=== PATIENT | male | born 1950 | race Caucasian/White ===

== ENCOUNTER 2016-06-22 06:53 | Day surgery (SDC) | payer BC ==
[~2016-06-22 06:53] MED LIST: ceFAZolin 2 GM/DEXTROSE 100 ML IV ONE
[2016-06-22] MEDS ORDERED: SKIN ADHESIVE (DERMABOND) 1 EACH TP ONE (08:46)
[2016-06-22] MEDS ORDERED: BUPIVACAINE 0.5% 30 ML SDV ONE (08:46)
[2016-06-22] MEDS ORDERED: MIDAZOLAM 2 MG/2 ML VIAL ONE (08:57)
[2016-06-22] MEDS ORDERED: PROPOFOL/EMULSION 500 MG/50 ML BOTTLE IV ONE (09:00)
[2016-06-22] MEDS ORDERED: fentaNYL 250 MCG/5 ML INJ ONE (09:02)
[2016-06-22] MEDS ORDERED: ROCURONIUM 100 MG/10 ML VIAL ONE (10:00)
[2016-06-22] MEDS ORDERED: DEXAMETHASONE 4 MG/ML VIAL ONE (10:00)
[2016-06-22] MEDS ORDERED: ONDANSETRON 4 MG/2 ML VIAL ONE (10:00)
--- NOTE | 2016-06-22 12:20 | GOP ---
[f rep st] OPERATIVE REPORT DATE OF OPERATION: 06/22/2016 SURGEON: Gayatri Khoury MD TALENT ACQUISITION SOURCER: Zohreh Michael PA-C. ANESTHESIA: General. PREOPERATIVE DIAGNOSIS: Necrotizing pancreatitis with cholelithiasis. POSTOPERATIVE DIAGNOSIS: Necrotizing pancreatitis with cholelithiasis. PROCEDURE PERFORMED: Laparoscopic cholecystectomy. SPECIMENS: Gallbladder. ESTIMATED BLOOD LOSS: 10 cc. INDICATIONS: Darryn Mercado is a 65-year-old man who had a severe episode of necrotizing pancreatitis. Gallstones were noted. He presents for cholecystectomy. DESCRIPTION OF PROCEDURE: Darryn was brought into the operating room, placed supine on the table, and general anesthesia was administered. His abdomen was prepped and draped in the usual sterile fashion. I infiltrated all sites with 0.5% Marcaine prior to making incisions. I made an incision by his umbilicus. I inserted the Veress needle. It passed the hanging drop test. His abdomen insufflated easily to a pressure of 15 mmHg. Under direct vision, I placed a 5 mm camera with a trocar. There were no injuries from Veress needle placement. I placed a 10 mm subxiphoid trocar and two 5 mm trocars along the right costal margin. I lifted his gallbladder cephalad and laterally to expose the triangle of Calot. I skeletonized the cystic artery and the cystic duct so that they were the only 2 structures directly entering the gallbladder. Each were singly clipped toward the gallbladder and doubly clipped distally. They were transected with scissors. The clips were in adequate position. I removed the gallbladder from the gallbladder fossa with electrocautery. It was placed in an EndoCatch bag and removed via the subxiphoid trocar. Hemostasis was achieved on the liver bed with electrocautery. The fascia at the 10 mm trocar site was closed with 0 Vicryl. Skin closed with 4-0 Monocryl. Dermabond applied. He was awakened in the operating room, extubated, transferred to PACU in stable condition. /[id number]/MODL MTDD
== END 2016-06-22 12:05 | disposition home or self-care (01) ==
LOC: FSGY 06:53
PROVIDERS: ATTEND Surgery
PROC: 0FT44ZZ Resection of Gallbladder, Percutaneous Endoscopic Approach (ICD-10-PCS; principal; 2016-06-22 08:45)
DX: K85.11 Biliary acute pancreatitis with uninfected necrosis (principal); I10 Essential (primary) hypertension; K21.9 Gastro-esophageal reflux disease without esophagitis
CPT/HCPCS: J0690; J1100; J2250; J2405; J2704; J3010

== ENCOUNTER 2018-06-16 12:16 | Day surgery (SDC) | payer OTHER, BC ==
[~2018-06-16 12:16] MED LIST changes: +LIDOCAINE 2% 100 MG/5 ML SYR ONE; +PROPOFOL 200 MG/20 ML VIAL ONE; -ceFAZolin 2 GM/DEXTROSE 100 ML IV ONE; +fentaNYL 100 MCG/2 ML INJ ONE
[2018-06-16] MEDS ORDERED: LIDOCAINE 1% 2 ML INJ ID PRN (12:46)
[2018-06-16] MEDS ORDERED: LR 1,000 ML IV ONE (12:46)
[2018-06-16 13:02] VITALS: BP 126/79
--- NOTE | 2018-06-16 13:13 | PDANEPAE ---
ANE History of Present Illness h/o pancreatitis, here for EGD/EUS ANE Past Medical History - Cardiovascular History Hx Hypertension: Yes Hx Arrhythmias: No Hx Chest Pain: No Hx Coronary Artery / Peripheral Vascular Disease: No Hx CHF / Valvular Disease: No Hx Palpitations: No Cardiovascular History Comment: LOOP RECORDER. DVT IN LEG A FEW YEARS AGO- TAKES XARELTO right poplateal artery clot - Pulmonary History Hx COPD: No Hx Asthma/Reactive Airway Disease: No Hx Recent Upper Respiratory Infection: No Hx Oxygen in Use at Home: No Hx Sleep Apnea: No Sleep Apnea Screening Result - Last Documented: Positive Pulmonary History Comment: asthma triggered by seasonal allergies - Neurologic History Hx Cerebrovascular Accident: No Hx Seizures: No Hx Dementia: No - Endocrine History Hx Diabetes: No - Renal History Hx Renal Disorders: No Renal History Comment: HX OF KIDNEY STONE - Liver History Hx Hepatic Disorders: No Hepatic History Comment: RECENT PANCREATITIS - Neurological & Psychiatric Hx Hx Neurological and Psychiatric Disorders: Yes 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 cholecystectomy ANE Review of Systems Review of Systems: - Exercise capacity METS (RN): 4 METS ANE Patient History - Allergies Allergies/Adverse Reactions: No Known Allergies Allergy (Verified 06/13/18 12:58) - Home Medications Home Medications: Xarelto 06/15/16 [Last Taken 06/12/18] Benicar 20 mg (*) 06/16/18 [Last Taken 06/16/18] - NPO status NPO Since - Liquids (Date): 06/16/18 NPO Since - Liquids (Time): 05:00 NPO Since - Solids (Date): 06/15/18 NPO Since - Solids (Time): 22:00 - Smoking Hx Smoking Status: Never smoked - Family Anes Hx Family Hx Anesthesia Complications: NONE ANE Labs/Vital Signs - Vital Signs Blood Pressure: 126/79 Heart Rate: 91 Respiratory Rate: 18 O2 Sat (%): 96 Height: 175.26 cm Weight: 83.915 kg ANE Physical Exam - Airway Neck exam: FROM Mallampati Score: Class 1 Mouth exam: normal dental/mouth exam - Pulmonary Pulmonary: no respiratory distress, no rales or rhonchi - Cardiovascular Cardiovascular: regular rate and rhythym, no murmur, rub, or gallop - ASA Status ASA Status: II ANE Anesthesia Plan Anesthesia Plan: GA with mask Total IV Anesthesia: Yes
--- NOTE | 2018-06-17 10:59 | CPEKG ---
Test Reason : OPEN Blood Pressure : / mmHG Vent. Rate : 084 BPM Atrial Rate : 084 BPM P-R Int : 154 ms QRS Dur : 067 ms QT Int : 375 ms P-R-T Axes : 080 061 054 degrees QTc Int : 444 ms Sinus rhythm Confirmed by Estrada Le ([id number]) on 06/17/2018 10:59:19 AM Referred By: Confirmed By:Estrada Le
== END 2018-06-16 14:30 | disposition home or self-care (01) ==
LOC: FSGY 12:16
PROVIDERS: ATTEND Internal Medicine Gastroenterology
DX: K85.90 Acute pancreatitis without necrosis or infection, unspecified (principal); Z53.09 Procedure and treatment not carried out because of other contraindication
CPT/HCPCS: J2001; J2704; J3010